=== PATIENT | female | born 1935 | race Caucasian/White ===

== ENCOUNTER 2020-11-06 10:58 | Emergency (ER) | payer MEDICARE, SELFPAY ==
--- NOTE | ~2020-11-06 | XR_ITS ---
EXAMINATION: XR chest 1V portable EXAM DATE: 11/06/2020 11:42 INDICATION: Transient Alteration Of Awareness . TECHNIQUE: Portable AP frontal chest x-ray was obtained. There is no prior study for comparison. FINDINGS: The lungs are clear. There are no pleural effusions. The cardiomediastinal silhouette is within normal limits. There is no pneumothorax suspected. The bones and soft tissues are unremarkab le. IMPRESSION: No acute cardiopulmonary findings. Reviewed, dictated and finalized at location A.
--- NOTE | ~2020-11-06 | CT_ITS ---
EXAMINATION: CT brain wo con DATE: 11/06/2020 11:29 INDICATION: Confusion. Altered mental status. TECHNIQUE: Computed tomography (CT) of the head was performed without intravenous contrast. The mA wa s adjusted according to patient size. Iterative reconstruction technique was employed. The dose-lengt h product was 605.33 mGy-cm. 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 There are scattered areas of low attenuation in the cerebral white matter, which is within normal limits fo r the patient's age. There is no intracranial hemorrhage, acute infarction, or abnormal intracranial mass lesion. There is ex vacuo dilatation of anterior body of right lateral ventricle. The paranasal sinuses are clear. There is a small left mastoid effusion. There are likely changes of ocular lens re placement surgeries. IMPRESSION: 1. 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 Reviewed, dictated and finalized at location A.
[2020-11-06 11:14] VITALS: BP 118/48; PULSE 69; RESP 16; TEMP 36.3; O2SAT 100
--- NOTE | 2020-11-06 11:49 | ED.GENADULT ---
HPI - General Adult General Chief complaint: Altered Mental Status <El Flores DO - Last Filed: 11/06/20 20:33> Stated complaint: AGGRESSION <El Flores DO - Last Filed: 11/06/20 20:33> Time Seen by Provider: 11/06/20 11:02 <El Flores DO - Last Filed: 11/06/20 20:33> Source: RN notes reviewed <El Flores DO - Last Filed: 11/06/20 20:33> History of Present Illness HPI narrative: Patient presents to emergency department from [facility] for altered mental status. Per the staff the patient has been more agitated and aggressive today patient has a history of Alzheimer's and was recently seen in the hospital for this and start on Klonopin. Today the patient was more aggressive trying to strike at staff and was sent for further evaluation patient is currently awake and alert x1 in the room but does not answer for questions she has no complaints of pain states she has not been L <El Flores DO - Last Filed: 11/06/20 20:33> Related Data Allergies/adverse reactions: Allergies Allergy/AdvReac Type Severity Reaction Status Date / Time No Known Allergies Allergy Verified 11/06/20 20:22 <El Flores DO - Last Filed: 11/06/20 20:33> Review of Systems Review of Systems: Narrative: Gen.: Denies fevers or chills ENT: Denies congestion Respiratory: Denies shortness of breath or cough CV: Denies chest pain GI: Denies abdominal pain nausea, emesis or diarrhea Musculoskeletal: Denies back pain or muscle pain Neuro: See HPI Skin: Denies rash Except as documented, all other systems reviewed and negative <El Flores DO - Last Filed: 11/06/20 20:33> [facility] Past Medical History Medical History: Medical History (Updated 11/06/20 @ 21:26 by Eleni Mondragon MD) Dementia <El Flores DO - Last Filed: 11/06/20 20:33> Social History Social History: Social History (Updated 11/06/20 @ 11:50 by El Flores DO) Smoking status: Never smoker Substance use type: unknown <DO Elle Avila Last Filed: 11/06/20 20:33> Exam Narrative: Exam Narrative: APPEARANCE: Laying in bed no acute distress EYES: PERRL HEENT: Normocephalic, atraumatic, OMM RESPIRATORY: No respiratory distress Clear to auscultation bilaterally with no rhonchi wheezing or rales. CARDIOVASCULAR: Regular rate and rhythm without murmurs rubs or gallops. ABDOMINAL: Soft, nontender, nondistended, no rebound or guarding MUSCULOSKELETAl: Moves all extremities. No clubbing, cyanosis or edema. NEURO: Awake and alert x 1. Following commands, speech normal, no focal deficits SKIN:: Warm, dry. No rashes lesions or abrasions PSYCHIATRIC: Agitated trying to state the patient she made a fist at me and attempted to swing <El Flores DO - Last Filed: 11/06/20 20:33> Course Course Emergency Course: Had long discussion with patient's daughter patient's daughter is in agreement the patient likely requires [facility] psychiatric placement at this time will have case management evaluate for general psych placement Patient has become more agitated in the emergency department. patient is attempting to get out of bed and becoming more violent with the staff. numerous attempts were made to verbally redirect the patient back into bed but was unsuccessful. Attempted to give patient p.o. Ativan which the patient refused. the patient became more agitated striking out at staff and Zyprexa given <El Flores DO - Last Filed: 11/06/20 20:33> Reevaluation(s) Date: 11/07/20 <Eleni Mondragon MD - Last Filed: 11/07/20 02:39> Time: 02:38 <Eleni Mondragon MD - Last Filed: 11/07/20 02:39> Vital Signs Vital signs: Vital Signs Temperature 36.3 C L 11/06/20 11:14 Pulse Rate 69 11/06/20 11:14 Respiratory Rate 16 11/06/20 11:14 Blood Pressure 118/48 L 11/06/20 11:14 Pulse Oximetry 100 11/06/20 11:14 Temperature 36.3 C L 11/06/20 11:1
[2020-11-06 12:26] LABS: Basophils Percent Auto 0.2 % (0.2-1.2); Eosinophils Absolute Auto 0.1 K/mm3 (0-0.3); Eosinophils Percent Auto 0.9 % (0-4.4); Hematocrit 38.4 % (37.0-47.0); Hemoglobin 12.4 g/dL (12.0-15.0); Immature Granulocyte Absolute 0.04 K/mm3 (0.00-0.031); Immature Granulocyte Percent A 0.5 % (0-0.5); Lymphocytes Absolute Auto 1.23 K/mm3 (0.9-3.2); Mean Corpuscular HGB Conc 32.3 g/dl (32-36); Mean Corpuscular Hemoglobin 29.5 pg (26-34); Mean Corpuscular Volume 91.2 fl (80-100); Mean Platelet Volume 10.2 fl (7.4-10.4); Monocytes Absolute Auto 0.5 K/mm3 (0.1-0.6); Monocytes Percent Auto 6.1 % (2.6-8.5); Neutrophils Absolute Auto 6.4 K/mm3 (1.3-6.7); Neutrophils Percent Auto 77.3 % (45.5-73.1); Platelet Count Result 263 k/mm3 (150-375); Red Blood Count 4.21 M/mm3 (4.2-5.4); Red Cell Distribution Width 12.8 % (11.5-14.5); White Blood Count 8.2 K/mm3 (4.5-10.0)
[2020-11-06 12:38] LABS: INR 0.9; Lactic Acid Reflex 1.6 mmol/L (0.7-2.1); Prothrombin Time 12.1 Seconds (11.1-14.7)
[2020-11-06 12:40] LABS: Alanine Aminotransferase 18 U/L (4-35); Albumin Level 4.1 g/dL (3.5-5.1); Alkaline Phosphatase 102 U/L (38-126); Anion Gap 7 mmol/L (8-16); Aspartate Amino Transferase 24 U/L (14-36); Bilirubin,Total 0.6 mg/dL (0.2-1.3); Blood Urea Nitrogen 15 mg/dL (7-17); Calcium 11.8 mg/dL (8.4-10.2); Carbon Dioxide 34 mmol/L (22-30); Chloride 98 mmol/L (98-107); Estimated CRCL calculation 29 ml/min; Estimated Glomerular Filt Rate 39; Glucose 95 mg/dL (65-105); Potassium 3.4 mmol/L (3.4-5.0); Sodium 139 mmol/L (137-145)
[2020-11-06 13:42] LABS: Add Urine Microscopic? YES; Appearance Urine Clear (Clear); Bacteria Urine Trace /hpf; Bilirubin Urine Negative (Negative); Blood Urine Negative (Negative); Color Urine Yellow (Yellow); Glucose Urine UA Negative (Negative); Hyaline Casts Urine 20-29 /lpf; Ketones Urine Negative (Negative); Leukocyte Esterase Ur Negative LEU/UL (Negative); Mucus Urine Rare /lpf; Nitrate Urine Negative (Negative); Protein Urine Negative (Negative); RBC Urine 0-2 /hpf (0-2); Specific Grav Ur 1.017 (1.001-1.035); Squamous Epithelial Cell Urine Many /hpf (Few); WBC Urine 0-3 /hpf
[2020-11-06 13:48] VITALS: BP 136/45; PULSE 75; RESP 16; O2SAT 98
[2020-11-06 14:30] VITALS: BP 139/50; PULSE 75; RESP 17; O2SAT 98
--- NOTE | 2020-11-06 15:15 | PC.NURSE ---
pt resting quietly on stretcher with daughter at bedside. lunch tray ordered.
--- NOTE | 2020-11-06 16:10 | PCCCNOTE ---
Care Coordination was asked to talk to step daughter Cheyanne SANCHEZ ([phone] and her Olu [phone]) about pt going to [facility]. Cheyanne states that the pt came from [facility] in [place] and due to her behaviors she is not allowed to return. Cheyanne is agreeable to [facility] and prefers [facility] in [place] and her second choice would be [facility] in [place]. Faxed face sheet, advance directives, POLST form, ED MD report and labs to Kyrie at [facility] Psych intake [phone]. Kyrie's phone number is [phone]
--- NOTE | 2020-11-06 18:05 | PC.NURSE ---
chem, Jaime, added on EtOH
[2020-11-06 18:39] LABS: EDCOVIDSCREEN Negative (Negative)
[2020-11-06 19:07] LABS: Amphetamine Screen Urine Negative (Negative); Barbiturate Screen Urine Negative (Negative); Benzodiazepines Screen Urine Negative (Negative); Cannabinoid Screen Urine Negative (Negative); Cocaine Screen Urine Negative (Negative); Methadone Screen Urine Negative (Negative); Opiate Screen Urine Negative (Negative); Phencyclidine Screen Urine Negative (Negative)
--- NOTE | 2020-11-06 19:24 | PCCCNOTE ---
Involuntary Petition completed by Care Coordination. Inpatient Certificate completed by Packet ready to fax except waiting on Blood ethanol level. Packet given to ED charge nurse Alexandrea and she will fax when lab result available. Copy of Involuntary Petition given to Kaylene SANCHEZ.
[2020-11-06 19:29] LABS: Ethanol < 10 mg/dL (<10)
[2020-11-06] MEDS: OLANZapine 10 MG INJ VIAL (20:17)
--- NOTE | 2020-11-06 21:34 | ECG_ITS ---
Measurements Intervals [place] Rate: 69 P: 61 MA: 146 QRS: 28 QRSD: 102 T: 62 QT: 436 QTc: 469 Interpretive Statements SINUS RHYTHM NORMAL ECG Electronically Signed On 11-07-2020 6:56:17 CDT by Tyrone Rodriguez D.O.
--- NOTE | 2020-11-06 22:05 | PC.NURSE ---
Verified receipt of faxed pt's chart to [place]. States they will call back as soon as decision is made. Charge nurse notified.
--- NOTE | 2020-11-06 23:46 | PC.NURSE ---
Pt's son on law's phone number [phone]
--- NOTE | 2020-11-07 00:15 | PC.NURSE ---
Pt resting on stretcher, lights dimmed, call light in reach.
[2020-11-07 01:10] VITALS: BP 117/51; PULSE 59; RESP 15; O2SAT 98
--- NOTE | 2020-11-07 01:33 | PC.NURSE ---
Received call from [facility], spoke with Afia who stated facility would not accept pt with only rapid COVID test. States that either PCR needs to be done or proof that pt received 2nd COVID vaccination shot over 2 weeks ago. This RN will follow-up with NH and family. ED charge out clerk made aware.
[2020-11-07] MEDS: Please add drug allergy info to patient profile. 1 EACH XX ×2 (01:39→05:02)
--- NOTE | 2020-11-07 02:01 | PC.NURSE ---
This RN called [facility]. Spoke with Ty and as informed that he did not see a record of a COVID vaccination for pt in chart but will keep looking. EDP made aware, PCR COVID test ordered.
--- NOTE | 2020-11-07 02:11 | PC.NURSE ---
Received call from [facility]. This RN was informed that pt had been vaccinated and asked to be sent record via fax.
--- NOTE | 2020-11-07 02:31 | PC.NURSE ---
Fax sent to [facility] with COVID vaccination record. Received. Facility will call with unit number for report and accepting doctor.
[2020-11-07] MEDS: OLANZapine 10 MG INJ VIAL 5 MG IM (02:40)
[2020-11-07] MEDS: WATER, STERILE FOR INJECTION 10 ML VIAL XX (02:40)
--- NOTE | 2020-11-07 02:45 | PC.NURSE ---
Received call from Afia at [facility]. This RN was informed pt has been accepted at facility, but they will not have a bed available until 0800. Per Afia, wait to call nurse-nurse report until that time. Call [phone]. EDP and charge made aware.
[2020-11-07 04:27] VITALS: BP 129/53; PULSE 60; RESP 16; O2SAT 96
[2020-11-07 06:15] VITALS: BP 113/71; PULSE 62; RESP 14; O2SAT 97
[2020-11-07 07:35] VITALS: BP 111/49; PULSE 97; RESP 18; O2SAT 100
--- NOTE | 2020-11-07 08:05 | PC.NURSE ---
[facility] is unable to give bed number at this time due to physician rounding not being completed. Nurse to nurse report cannot be given until bed number is obtained.
--- NOTE | 2020-11-07 09:18 | PC.NURSE ---
[facility] states at this time that they are working on getting a bed number and move other patient's around at this time. At this time we are unable to give nurse to nurse report until a bed number is assigned.
--- NOTE | 2020-11-07 09:57 | PC.NURSE ---
Patient's daughter POA called to give verbal consent to transfer patient to [place] for further treatment.
--- NOTE | 2020-11-07 11:21 | PC.NURSE ---
[place] report called at this time, Jia DAVIS. Patient going to bed 312-A
--- NOTE | 2020-11-07 11:22 | PC.NURSE ---
CALLED [facility] FOR TRANSFER...ETA [id number]
[2020-11-07 11:39] VITALS: BP 156/78; PULSE 86; RESP 17; O2SAT 98
== END 2020-11-07 13:02 ==
PROVIDERS: Emergency Medicine; Emergency Provider Emergency Medicine; PCP Family Medicine
DX: G30.9 Alzheimer's disease, unspecified (principal); F02.81 Dementia in other diseases classified elsewhere, unspecified severity, with behavioral disturbance; Z86.73 Personal history of transient ischemic attack (TIA), and cerebral infarction without residual deficits; G20 Parkinson's disease; Z20.822 Contact with and (suspected) exposure to COVID-19; Z79.82 Long term (current) use of aspirin; Z79.899 Other long term (current) drug therapy
CPT/HCPCS: 36415; 51701; 70450; 71045; 80053; 80307; 81001; 83605; 85025; 85610; 85730; 87040; 87426; 93005; 96372; 99285; C9803

== ENCOUNTER 2024-02-18 16:02 | Emergency (ER) | payer MEDICARE, MEDICAID, SELFPAY ==
--- NOTE | 2024-02-18 16:05 | ECG_ITS ---
Test Date: 2024-02-18 16:13:05 Measurements Intervals [place] Rate: 94 P: 0 VA: 0 QRS: 39 QRSD: 88 T: 48 QT: 327 QTc: 410 Interpretive Statements ATRIAL FIBRILLATION ABNORMAL ECG No previous ECG available for comparison Electronically Signed On 02-19-2024 13:07:46 CDT by Garcia iNchols M.D.
[2024-02-18 16:07] VITALS: BP 134/77; PULSE 97; RESP 13; TEMP 36.6; O2SAT 100
[2024-02-18 16:53] VITALS: BP 148/93; PULSE 98; RESP 15; O2SAT 98
[2024-02-18 18:05] LABS: Basophils Percent Auto 0.2 % (0.2-1.2); Eosinophils Percent Auto 0.2 % (0-4.4); Hemoglobin 14.6 g/dL (12.0-15.0); Immature Granulocyte Absolute 0.03 K/mm3 (0.00-0.031); Immature Granulocyte Percent A 0.3 % (0-0.5); Lymphocytes Absolute Auto 1.01 K/mm3 (0.9-3.2); Lymphocytes Percent Auto 10.6 % (18.3-44.2); Mean Corpuscular HGB Conc 32.4 g/dl (32-36); Mean Corpuscular Hemoglobin 29.9 pg (26-34); Mean Platelet Volume 10.6 fl (7.4-10.4); Monocytes Absolute Auto 0.7 K/mm3 (0.1-0.6); Monocytes Percent Auto 7.5 % (2.6-8.5); Neutrophils Absolute Auto 7.7 K/mm3 (1.3-6.7); Neutrophils Percent Auto 81.2 % (45.5-73.1); Platelet Count Result 231 k/mm3 (150-375); Red Blood Count 4.89 M/mm3 (4.2-5.4); Red Cell Distribution Width 12.9 % (11.5-14.5); White Blood Count 9.5 K/mm3 (4.5-10.0)
[2024-02-18 18:14] LABS: Alanine Aminotransferase 21 U/L (6-35); Albumin Level 4.5 g/dL (3.5-5.1); Alkaline Phosphatase 122 U/L (38-126); Anion Gap 11 mmol/L (4-12); Aspartate Amino Transferase 28 U/L (14-36); Bilirubin,Total 0.9 mg/dL (0.2-1.3); Blood Urea Nitrogen 21 mg/dL (7-17); Calcium 10.9 mg/dL (8.4-10.2); Carbon Dioxide 27 mmol/L (22-30); Chloride 99 mmol/L (98-107); Estimated CRCL calculation 32 ml/min; Estimated Glomerular Filt Rate 52; Glucose 175 mg/dL (65-110); Potassium 4.3 mmol/L (3.4-5.0); Sodium 137 mmol/L (137-145)
--- NOTE | 2024-02-18 19:18 | PC.NURSE ---
Received report from Nubia DAVIS. RN obtaining UA at this time.
[2024-02-18 19:21] VITALS: BP 135/55; PULSE 89; RESP 14; O2SAT 98
--- NOTE | 2024-02-18 20:27 | ED.GENADULT ---
HPI - General Adult General Chief complaint: Weakness Stated complaint: gen weakness Time Seen by Provider: 02/18/24 16:45 History of Present Illness HPI narrative: Patient is an 88-year-old female with history dementia with baseline orientation x2 who presents ER with increased weakness according to her residential staff. Apparently had trouble ambulating with her walker the nursing homes they wanted her evaluated. No recent history of injury or illness. Patient cannot provide history. She does seem bit agitated upon arrival. Related Data Home Medications Medication Instructions Recorded Confirmed acetaminophen 325 mg tablet 325 mg PO ONCE PRN Pain 11/07/20 amlodipine 10 mg tablet 10 mg DAILY 11/07/20 aspirin 81 mg tablet,delayed 81 mg DAILY 11/07/20 release atorvastatin 40 mg tablet 40 mg PO HS 11/07/20 Allergies Allergy/AdvReac Type Severity Reaction Status Date / Time No Known Allergies Allergy Verified 11/07/20 07:36 Review of Systems Review of Systems: ROS unobtainable: Yes unobtainable due to mental status PMFSH Past Medical History Medical History (Updated 02/18/24 @ 20:48 by Dino Umaña MD) Dementia Social History Social History (Updated 11/06/20 @ 11:50 by El Flores, DO) Smoking status: Never smoker Substance use type: unknown Exam Narrative: GENERAL: Well-appearing, well-nourished, and in no acute distress. HEAD: Normocephalic, atraumatic. ENT: Mucous membranes moist. CHEST: Clear to auscultation. No respiratory distress. HEART: Regular rate and rhythm. Normal peripheral pulses. ABDOMEN: Soft, nontender, nondistended. EXTREMITIES: Normal range of motion. No edema. SKIN: Warm, dry, no rash. NEURO: Alert and oriented x2. PSYCH: Normal mood and affect. Course Course Emergency Course: Patient resting comfortably. Has ambulated without issue here to and from the bathroom. Labs within normal limits and without infection. Discharge back to facility. Vital Signs Vital signs: Vital Signs Temperature 98 F 02/18/24 16:07 Pulse Rate 97 02/18/24 16:07 Respiratory Rate 13 02/18/24 16:07 Blood Pressure 134/77 02/18/24 16:07 Pulse Oximetry 100 02/18/24 16:07 Oxygen Delivery Room Air 02/18/24 16:07 Temperature 98 F 02/18/24 16:07 Pulse Rate 89 02/18/24 19:21 Respiratory Rate 14 02/18/24 19:21 Blood Pressure 135/55 L 02/18/24 19:21 Pulse Oximetry 98 02/18/24 19:21 Oxygen Delivery Room Air 02/18/24 16:07 Medical Decision Making Vital Signs Vital Signs: Vital Signs Temperature 98 F 02/18/24 16:07 Pulse Rate 97 02/18/24 16:07 Respiratory Rate 13 02/18/24 16:07 Blood Pressure 134/77 02/18/24 16:07 Pulse Oximetry 100 02/18/24 16:07 Oxygen Delivery Room Air 02/18/24 16:07 Temperature 98 F 02/18/24 16:07 Pulse Rate 89 02/18/24 19:21 Respiratory Rate 14 02/18/24 19:21 Blood Pressure 135/55 L 02/18/24 19:21 Pulse Oximetry 98 02/18/24 19:21 Oxygen Delivery Room Air 02/18/24 16:07 Lab Data 02/18/24 17:57 02/18/24 17:57 Labs: Lab Results 02/18/24 02/18/24 Range/Units 17:57 19:27 WBC 9.5 (4.5-10.0) K/mm3 RBC 4.89 (4.2-5.4) M/mm3 Hgb 14.6 (12.0-15.0) g/dL Hct 45.0 (37.0-47.0) % MCV 92.0 (80-100) fl MCH 29.9 (26-34) pg MCHC 32.4 (32-36) g/dl RDW 12.9 (11.5-14.5) % Plt Count 231 (150-375) k/mm3 MPV 10.6 H (7.4-10.4) fl Immature Gran % (Auto) 0.3 (0-0.5) % Neut % (Auto) 81.2 H (45.5-73.1) % Lymph % (Auto) 10.6 L (18.3-44.2) % [place] % (Auto) 7.5 (2.6-8.5) % Eos % (Auto) 0.2 (0-4.4) % Baso % (Auto) 0.2 (0.2-1.2) % Lymph # (Auto) 1.01 (0.9-3.2) K/mm3 [place] # (Auto) 0.7 H (0.1-0.6) K/mm3 Eos # (Auto) 0.0 (0-0.3) K/mm3 Baso # (Auto) 0.0 (0.0-0.1) K/mm3 Abs Immat Gran (auto) 0.03 (0.00-0.031) K/mm3 Absolute Neuts (auto) 7.7 H (1.3-6.7) K/mm3 Absolute Nucleated RBC 0.000 (0.0-0.012) K/mm3 Nucleated RBC % 0.0 (0.0-0.2) % Sodium 137 (137-145) mmol/L Potassium 4.3 (3.4-5.0) mmol/L Chloride 99 (98-107) mmol/L Carbon Dioxide 27 (22-30) mmol/L Anion Gap 11 (4-12) mmol/L BUN 21 H (7-17) mg/dL Creatinine 1.00 (0.7-1.0) mg/dL Estim Creat Clear Calc 32 ml/min Estimated GFR 52 L (59 - ) Glucose 175 H (65-110) mg/dL Calcium 10.9 H (8.4-10.2) mg/dL Total Bilirubin 0.9 (0.2-1.3) mg/dL AST 28 (14-36) U/L ALT 21 (6-35) U/L Alkaline Phosphatase 122 (38-126) U/L Total Protein 8.0 (6.3-8.2) g/dL Albumin 4.5 (3.5-5.1) g/dL Urine Color Pending Urine Appearance Pending Urine pH Pending Ur Specific [place] Pending Urine Protein Pending Urine Glucose (UA) Pending Urine Ketones Pending Ur Blood (Man) Pending Urine Nitrate Pending Urine Bilirubin Pending Urine Urobilinogen Pending Leukocyte Esterase Rfl Pending Discharge Plan Discharge Clinical Impression: Dementia Patient Disposition: Home, Self-Care Condition: Stable Instructions: Dementia (ED) Prescriptions: No Action atorvastatin 40 mg Tablet 40 mg PO HS acetaminophen 325 mg Tablet 325 mg PO ONCE PRN (Reason: Pain) aspirin [Adult Aspirin EC Low Strength] 81 mg Tablet,Delayed Release (Dr/Ec) 81 mg DAILY amlodipine 10 mg Tablet 10 mg DAILY Follow-up/Referrals: Maricarmen,Art Ruff MD [Primary Care Provider] - 1 Week
[2024-02-18 20:42] LABS: Add Urine Microscopic? YES; Appearance Urine Clear (Clear); Bacteria Urine None Seen /hpf; Bilirubin Urine Negative (Negative); Blood Urine Negative (Negative); Color Urine Yellow (Yellow); Glucose Urine UA Negative (Negative); Ketones Urine Negative (Negative); Leukocyte Esterase Ur 1+ LEU/UL (Negative); Need Manual Microscopic Reviewed; Nitrate Urine Negative (Negative); Non Pathogenic Casts 0-2; Protein Urine Trace mg/dL (Negative); RBC Urine 0-2 /hpf (0-2); Specific Grav Ur 1.018 (1.001-1.035); Squamous Epithelial Cell Urine None Seen /hpf (Few); Urobilinogen Urine 0.2 mg/dL (<2.0); WBC Urine 0-5 /hpf (0-3)
--- NOTE | 2024-02-18 20:53 | PC.NURSE ---
community ambassador calling ambulance to get ride back to [facility].
--- NOTE | 2024-02-18 21:31 | PC.NURSE ---
called and gave Eleni report at [facility]. [facility]
[2024-02-18 21:34] VITALS: BP 135/55; PULSE 62; RESP 18; TEMP 36.8; O2SAT 100
== END 2024-02-18 21:37 ==
PROVIDERS: Emergency Provider Emergency Medicine; PCP Family Medicine
DX: F03.90 Unspecified dementia, unspecified severity, without behavioral disturbance, psychotic disturbance, mood disturbance, and anxiety (principal); Z79.82 Long term (current) use of aspirin; Z79.899 Other long term (current) drug therapy; I48.91 Unspecified atrial fibrillation
CPT/HCPCS: 36415; 80053; 81001; 85025; 87086; 93005; 99283

== ENCOUNTER 2024-03-29 19:21 | Emergency (ER) | payer MEDICARE, MEDICAID, SELFPAY ==
--- NOTE | ~2024-03-29 | CT_ITS ---
EXAMINATION: CT abdomen pelvis w con DATE: 03/29/2024 21:17 INDICATION: Abdominal pain. TECHNIQUE: Computed tomography (CT) of the abdomen and pelvis was performed with 100 mL Omnipaque 350 intravenous contrast. Automated exposure control and iterative reconstruction technique were employe d. The dose-length product was 498.47 mGy-cm. COMPARISON: None. FINDINGS: The visualized portions of the lung bases demonstrate patchy groundglass opacities. There i s mild atelectasis bilaterally. No pleural effusion. Cardiomegaly is noted. No pericardial effusion. There are coronary artery calcifications. There is a small sliding hiatal hernia. The liver and gallb ladder are normal. There is a calcification the pancreas, consistent with chronic pancreatitis. There are 2 cystic lesions in the pancreas measuring up to 14 mm, likely pseudocysts. The adrenal glands a re normal. There are cysts in the kidneys measuring up to 1.5 cm on the left. There is cortical thinn ing of the kidneys. Stool distends the rectum. There is diverticulosis of the colon without evidence of diverticulitis. The appendix is normal. There is calcified atherosclerosis of the aorta and many o f the other arteries. There are no pathologically enlarged lymph nodes. There is no free intraperiton eal fluid. There is a chronic burst fracture of T12. There is a chronic compression fracture of L2. T here is mild lumbar spondylosis. IMPRESSION: 1. Mild bilateral lung disease, consistent with pulmonary edema versus pneumonia. 2. Small sliding hiatal hernia. 3. Stool distends the rectum. Reviewed, dictated and finalized at location A. ICULTURE PROFESSOR IMPRESSION: 1. Mild bilateral lung disease, consistent with pulmonary edema versus pneumoni a. 2. Small sliding hiatal hernia. 3. Stool distends the rectum.
--- NOTE | ~2024-03-29 | XR_ITS ---
XR chest 1V portable Ordering provider: Carmine Olvera MD History: 89 years Female with . cough . Comparison: None. FINDINGS: MEDIASTINUM: The cardiac silhouette is not enlarged. LUNGS: No infiltrates, effusions or pneumothorax. Prominent bronchovascular markings in the lower lob es may indicate fibrotic changes. OTHER: No free air under the diaphragm. Degenerative changes of the spine. Highly suggestive of indet erminate compression fracture of L1. IMPRESSION: No acute cardiopulmonary pathology. Reviewed, dictated and finalized at location A. [facility]
[2024-03-29 19:28] VITALS: BP 100/62; PULSE 85; RESP 20; TEMP 36.6; O2SAT 95
[2024-03-29 20:06] LABS: Basophils Percent Auto 0.3 % (0.2-1.2); Eosinophils Absolute Auto 0.1 K/mm3 (0-0.3); Eosinophils Percent Auto 1.5 % (0-4.4); Hematocrit 45.3 % (37.0-47.0); Hemoglobin 14.9 g/dL (12.0-15.0); Immature Granulocyte Absolute 0.02 K/mm3 (0.00-0.031); Immature Granulocyte Percent A 0.3 % (0-0.5); Lymphocytes Absolute Auto 1.35 K/mm3 (0.9-3.2); Lymphocytes Percent Auto 18.4 % (18.3-44.2); Mean Corpuscular HGB Conc 32.9 g/dl (32-36); Mean Corpuscular Volume 91.3 fl (80-100); Mean Platelet Volume 10.6 fl (7.4-10.4); Monocytes Absolute Auto 0.5 K/mm3 (0.1-0.6); Monocytes Percent Auto 7.4 % (2.6-8.5); Neutrophils Absolute Auto 5.3 K/mm3 (1.3-6.7); Neutrophils Percent Auto 72.1 % (45.5-73.1); Platelet Count Result 274 k/mm3 (150-375); Red Blood Count 4.96 M/mm3 (4.2-5.4); Red Cell Distribution Width 12.9 % (11.5-14.5); White Blood Count 7.3 K/mm3 (4.5-10.0)
[2024-03-29 20:23] LABS: Alanine Aminotransferase 17 U/L (6-35); Albumin Level 4.2 g/dL (3.5-5.1); Alkaline Phosphatase 109 U/L (38-126); Anion Gap 4 mmol/L (4-12); Aspartate Amino Transferase 24 U/L (14-36); Blood Urea Nitrogen 29 mg/dL (7-17); Calcium 11.1 mg/dL (8.4-10.2); Carbon Dioxide 32 mmol/L (22-30); Chloride 101 mmol/L (98-107); Estimated Glomerular Filt Rate 39; Glucose 158 mg/dL (65-110); Lipase 75 U/L (23-300); Magnesium 2.2 mg/dL (1.6-2.3); Potassium 3.3 mmol/L (3.4-5.0); Sodium 137 mmol/L (137-145)
[2024-03-29 20:34] LABS: Prothrombin Time 13.3 Seconds (11.1-14.7); Troponin I < 0.012 ng/mL (0.000-0.034)
[2024-03-29 20:35] LABS: Partial Thromboplastin Time 24.8 Seconds (22.3-36.8)
[2024-03-29] MEDS: SODIUM CHLORIDE 0.9% IV 1,000 ML 999 ML IV CONT (20:41)
[2024-03-29 20:52] LABS: Lactic Acid Reflex 1.5 mmol/L (0.7-2.0)
[2024-03-29 20:53] VITALS: BP 103/64; PULSE 84; RESP 18; TEMP 36.7; O2SAT 98
[2024-03-29 20:59] LABS: Add Urine Microscopic? YES; Appearance Urine Cloudy (Clear); Bacteria Urine None Seen /hpf; Bilirubin Urine Negative (Negative); Blood Urine Negative (Negative); Color Urine Yellow (Yellow); Glucose Urine UA Negative (Negative); Hyaline Casts Urine Present /lpf; Ketones Urine Negative (Negative); Leukocyte Esterase Ur Trace LEU/UL (Negative); Mucus Urine Present /lpf; Need Manual Microscopic Reviewed; Nitrate Urine Negative (Negative); Non Pathogenic Casts >20; Protein Urine 1+ mg/dL (Negative); RBC Urine 0-2 /hpf (0-2); Specific Grav Ur 1.018 (1.001-1.035); Squamous Epithelial Cell Urine Occasional /hpf (Few); WBC Urine 0-5 /hpf (0-3); pH Urine 5.5 (5.0-9.0)
[2024-03-29 21:16] LABS: Influenza A QL RT-PCR Negative (Negative); Influenza B QL RT-PCR Negative (Negative); RSV RNA, RT-PCR Negative (Negative); SARS-CoV-2 RNA PCR Negative (Negative)
[2024-03-29 21:31] LABS: Procalcitonin 0.1 ng/mL
--- NOTE | 2024-03-29 21:54 | ED_ITS ---
HPI - General Adult General Chief complaint: Nausea/Vomiting/Diarrhea Stated complaint: N/V Time Seen by Provider: 03/29/24 19:56 History of Present Illness HPI narrative: Patient 89-year-old female presents emergency department with chief complaint of nausea vomiting patient does also been weaker than normal of the patient is normally demented and is normally alert oriented x1 patient does report that she has had a cough the patient was seen in [facility] earlier today but they decided to send her to our facility for re-evaluation Related Data Home Medications Medication Instructions Recorded Confirmed acetaminophen 325 mg tablet 325 mg PO ONCE PRN Pain 11/07/20 amlodipine 10 mg tablet 10 mg DAILY 11/07/20 aspirin 81 mg tablet,delayed 81 mg DAILY 11/07/20 release atorvastatin 40 mg tablet 40 mg PO HS 11/07/20 Allergies Allergy/AdvReac Type Severity Reaction Status Date / Time No Known Allergies Allergy Verified 11/07/20 07:36 Review of Systems Review of Systems: A 10 system review of systems was completed on the patient and is negative except for what is stated in the HPI. Nursing and ancillary documentation was reviewed. [facility] Past Medical History Medical History Dementia Social History Social History Smoking status: Never smoker Substance use type: unknown Exam Narrative: GENERAL: Well-appearing, well-nourished, and in no acute distress. HEAD: Normocephalic, atraumatic. EYES: PERRLA and EOMI. ENT: Nares clear, no rhinorrhea or epistaxis. Mucous membranes moist. NECK: Supple. CHEST: Clear to auscultation. No respiratory distress. HEART: Regular rate and rhythm. No murmur heard. Normal peripheral pulses. ABDOMEN: Soft, nontender, nondistended, normal active bowel sounds. EXTREMITIES: Normal range of motion. No edema. SKIN: Warm, dry, no rash. NEURO: No focal deficits. Alert and oriented x1. PSYCH: Normal mood and affect. Course Vital Signs Vital signs: Vital Signs Temperature 36.6 C 03/29/24 19:28 Pulse Rate 85 03/29/24 19:28 Respiratory Rate 20 03/29/24 19:28 Blood Pressure 100/62 03/29/24 19:28 Pulse Oximetry 95 03/29/24 19:28 Oxygen Delivery Room Air 03/29/24 19:28 Temperature 36.7 C 03/29/24 20:53 Pulse Rate 84 03/29/24 20:53 Respiratory Rate 18 03/29/24 20:53 Blood Pressure 103/64 03/29/24 20:53 Pulse Oximetry 98 03/29/24 20:53 Oxygen Delivery Room Air 03/29/24 19:28 Medical Decision Making MDM Narrative Medical decision making narrative: Different diagnosis includes pneumonia, UTI, intra-abdominal infection, constipation Laboratory studies were obtained on the patient showed normal CBC CMP showed a creatinine 1.3 lactic acid was 1.5 troponin was negative procalcitonin 0.1 urinalysis showed no evidence UTI CT scan which showed 1. Mild bilateral lung disease, consistent with pulmonary edema versus pneumonia. 2. Small sliding hiatal hernia. 3. Stool distends the rectu Vital Signs Vital Signs: Vital Signs Temperature 36.6 C 03/29/24 19:28 Pulse Rate 85 03/29/24 19:28 Respiratory Rate 20 03/29/24 19:28 Blood Pressure 100/62 03/29/24 19:28 Pulse Oximetry 95 03/29/24 19:28 Oxygen Delivery Room Air 03/29/24 19:28 Temperature 36.7 C 03/29/24 20:53 Pulse Rate 84 03/29/24 20:53 Respiratory Rate 18 03/29/24 20:53 Blood Pressure 103/64 03/29/24 20:53 Pulse Oximetry 98 03/29/24 20:53 Oxygen Delivery Room Air 03/29/24 19:28 Lab Data 03/29/24 19:45 03/29/24 19:45 Labs: Lab Results 03/29/24 03/29/24 03/29/24 Range/Units 19:45 20:34 20:36 WBC 7.3 (4.5-10.0) K/mm3 RBC 4.96 (4.2-5.4) M/mm3 Hgb 14.9 (12.0-15.0) g/dL Hct 45.3 (37.0-47.0) % MCV 91.3 (80-100) fl MCH 30.0 (26-34) pg MCHC 32.9 (32-36) g/dl RDW 12.9 (11.5-14.5) % Plt Count 274 (150-375) k/mm3 MPV 10.6 H (7.4-10.4) fl Immature Gran % (Auto) 0.3 (0-0.5) % Neut % (Auto) 72.1 (45.5-73.1) % Lymph % (Auto) 18.4 (18.3-44.2) % [place] % (Auto) 7.4 (2.6-8.5) % Eos % (Auto) 1.5 (0-4.4) % Baso % (Auto) 0.3 (0.2-1.2) % Lymph # (Auto) 1.35 (0.9-3.2) K/mm3 [place] # (Auto) 0.5 (0.1-0.6) K/mm3 Eos # (Auto) 0.1 (0-0.3) K/mm3 Baso # (Auto) 0.0 (0.0-0.1) K/mm3 Abs Immat Gran (auto) 0.02 (0.00-0.031) K/mm3 Absolute Neuts (auto) 5.3 (1.3-6.7) K/mm3 Absolute Nucleated RBC 0.000 (0.0-0.012) K/mm3 Nucleated RBC % 0.0 (0.0-0.2) % PT 13.3 (11.1-14.7) Seconds INR 1.0 APTT 24.8 (22.3-36.8) Seconds Sodium 137 (137-145) mmol/L Potassium 3.3 L (3.4-5.0) mmol/L Chloride 101 (98-107) mmol/L Carbon Dioxide 32 H (22-30) mmol/L Anion Gap 4 (4-12) mmol/L BUN 29 H (7-17) mg/dL Creatinine 1.30 H (0.7-1.0) mg/dL Estim Creat Clear Calc Not Reportable Estimated GFR 39 L (59 - ) Glucose 158 H (65-110) mg/dL Lactic Acid 1.5 (0.7-2.0) mmol/L Calcium 11.1 H (8.4-10.2) mg/dL Magnesium 2.2 (1.6-2.3) mg/dL Total Bilirubin 1.0 (0.2-1.3) mg/dL AST 24 (14-36) U/L ALT 17 (6-35) U/L Alkaline Phosphatase 109 (38-126) U/L Troponin I < 0.012 (0.000-0.034) ng/mL Total Protein 7.0 (6.3-8.2) g/dL Albumin 4.2 (3.5-5.1) g/dL Lipase 75 (23-300) U/L Procalcitonin 0.1 ng/mL Urine Color Yellow (Yellow) Urine Appearance Cloudy H (Clear) Urine pH 5.5 (5.0-9.0) Ur Specific [place] 1.018 (1.001-1.035) Urine Protein 1+ H (Negative) mg/dL Urine Glucose (UA) Negative (Negative) mg/dL Urine Ketones Negative (Negative) mg/dL Ur Blood (Man) Negative (Negative) Urine Nitrate Negative (Negative) Urine Bilirubin Negative (Negative) Urine Urobilinogen 1.0 (<2.0) mg/dL Add Ur Microanalysis Reviewed Leukocyte Esterase Rfl Trace H (Negative) CHRISTIANA/UL Urine RBC 0-2 (0-2) /hpf Urine WBC 0-5 (0-3) /hpf Ur Squamous Epith Cells Occasional (Few) /hpf Urine Bacteria None seen /hpf Urine Casts >20 Hyaline Casts Present (None) /lpf Urine Mucus Present /lpf Influenza A (RT-PCR) Negative (Negative) Influenza B (RT-PCR) Negative (Negative) RSV (RT-PCR) Negative (Negative) SARS-CoV-2 RNA (RT-PCR) Negative (Negative) Discharge Plan Discharge Clinical Impression: Pneumonia, Constipation Patient Disposition: NH Senior Care/Asst Living Condition: Stable Instructions: Antibiotic Form, Acute Nausea and Vomiting (ED), Bacterial Pneumonia (ED) Prescriptions: New doxycycline hyclate 100 mg tablet 100 mg PO BID Qty: 14 0RF cefdinir 300 mg capsule 300 mg PO Q12H 10 Days Qty: 20 0RF polyethylene glycol 3350 [Miralax] 17 gram/dose powder 17 g PO DAILY 4 Days Qty: 68 0RF No Action atorvastatin 40 mg Tablet 40 mg PO HS acetaminophen 325 mg Tablet 325 mg PO ONCE PRN (Reason: Pain) aspirin [Adult Aspirin EC Low Strength] 81 mg Tablet,Delayed Release (Dr/Ec) 81 mg DAILY amlodipine 10 mg Tablet 10 mg DAILY Follow-up/Referrals: Maricarmen,Art Ruff MD [Primary Care Provider] - Time of Disposition: 22:01
[2024-03-29 21:58] VITALS: BP 141/59; PULSE 96
[2024-03-29 21:59] VITALS: BP 139/79
[2024-03-29] MEDS: CEFDINIR 300 MG CAPSULE PO (22:25)
[2024-03-29] MEDS: DOXYCYCLINE HYCLATE 100 MG TABLET PO (22:25)
[2024-03-29] MEDS: polyethylene glycoL 3350 17 GM POWD.PACK PO (22:25)
[2024-03-29 22:31] VITALS: BP 142/60; PULSE 107; RESP 20; TEMP 36.7; O2SAT 94
[2024-03-29 22:41] VITALS: PULSE 123
--- NOTE | 2024-03-29 22:42 | PC.NURSE ---
Patient's cardiac rhythm was showing 120 bpm Afib. Notified EDP Dr. Olvera who advised patient has a hx of Afib. EDP Dr. Olvera also reviewed patient's old EKGs and noticed that those showed an Afib.
[2024-03-30] MEDS: LORazepam (*CRX) 1 MG TABLET PO (00:01)
--- NOTE | 2024-03-30 00:18 | PC.NURSE ---
[facility] arrives for patient
== END 2024-03-30 00:23 ==
PROVIDERS: Emergency Provider Emergency Medicine; PCP Family Medicine
DX: J18.9 Pneumonia, unspecified organism (principal); K59.00 Constipation, unspecified; Z20.822 Contact with and (suspected) exposure to COVID-19; F03.90 Unspecified dementia, unspecified severity, without behavioral disturbance, psychotic disturbance, mood disturbance, and anxiety; J98.4 Other disorders of lung; K44.9 Diaphragmatic hernia without obstruction or gangrene; Z79.82 Long term (current) use of aspirin; Z79.899 Other long term (current) drug therapy
CPT/HCPCS: 36415; 71045; 74177; 80053; 81001; 83605; 83690; 83735; 84145; 84484; 85025; 85610; 85730; 87637; 96360; 99284; A9270; J7030; Q9967